=== PATIENT | female | born 1985 | race Caucasian/White ===

== ENCOUNTER 2018-12-14 09:39 | Inpatient (IN) | payer OTHER ==
[~2018-12-14] VITALS: Ht 157.5 cm; Wt 3.2 kg
[2018-12-14] MEDS ORDERED: PRENATABS RX T1 EACH PO (09:40)
[2018-12-20] MEDS ORDERED: CODE1TAB37 PO (10:47)
[2018-12-20] MEDS ORDERED: NAPR500T14 PO (10:47)
== END 2018-12-20 12:14 | disposition home or self-care (01) | DRG 788 ==
LOC: O/R 12-17 08:35 → OB/GYN 12-17 08:35
PROVIDERS: ADMIT Obstetrics & Gynecology
PROC: 4A1HXCZ Monitoring of Products of Conception, Cardiac Rate, External Approach (ICD-10-PCS; 2018-12-17)
PROC: 10D00Z1 Extraction of Products of Conception, Low, Open Approach (ICD-10-PCS; principal; 2018-12-17 12:15)
DX: O82 Encounter for cesarean delivery without indication (principal); Z3A.38 38 weeks gestation of pregnancy; Z37.0 Single live birth